=== PATIENT | female | born 1990 | race Caucasian/White ===

== ENCOUNTER 2017-03-10 16:05 | Emergency (ER) | payer MEDICAID ==
[~2017-03-10] VITALS: Ht 165.1 cm; Wt 100.0 kg
[2017-03-10] MEDS ORDERED: KETOROLAC 60MG/2ML VIAL IM ONE (19:00)
[2017-03-10 19:56] VITALS: BP 128/75
== END 2017-03-10 20:18 | disposition home or self-care (01) ==
LOC: ER 17:22
DX: S80.02XA Contusion of left knee, initial encounter (principal); M25.512 Pain in left shoulder; F12.10 Cannabis abuse, uncomplicated; V49.88XA Car occupant (driver) (passenger) injured in other specified transport accidents, initial encounter; Y93.89 Activity, other specified; Y92.89 Other specified places as the place of occurrence of the external cause; Y99.8 Other external cause status
CPT/HCPCS: 73562; 81025; 99284; J1885

== ENCOUNTER 2020-12-19 14:07 | Emergency (ER) | payer MEDICAID, OTHER ==
[~2020-12-19] VITALS: Ht 167.6 cm; Wt 108.0 kg
[2020-12-19 14:52] VITALS: BP 133/78
[2020-12-19] MEDS ORDERED: LIDOCAINE HCL/PF 1% 10 MG/ML 5ML VIAL IJ ONE (15:15)
[2020-12-19] MEDS ORDERED: BACITRACIN ZINC OINT UDPKT TOP ONE (15:15)
[2020-12-19] MEDS ORDERED: ACETAMINOPHEN 325MG TABLET PO ONE (15:15)
[2020-12-19] MEDS ORDERED: TETANUS, DIPHTHERIA, PERTUSSIS VAC/PF 0.5ML (>7YR OLD) IM ONE (15:15)
[2020-12-19] MEDS ORDERED: TRANEXAMIC ACID 1,000 MG/10 ML IV ONE (16:15)
[2020-12-19] MEDS ORDERED: BO1 TP (17:16)
== END 2020-12-19 17:44 | disposition home or self-care (01) ==
LOC: ER 14:07
DX: S61.012A Laceration without foreign body of left thumb without damage to nail, initial encounter (principal); W26.0XXA Contact with knife, initial encounter; Y93.89 Activity, other specified; Y92.89 Other specified places as the place of occurrence of the external cause; Y99.8 Other external cause status
CPT/HCPCS: 12001; 90471; 90715; 96374; 99283; J3490; Z7610

== ENCOUNTER 2020-12-23 13:58 | Emergency (ER) | payer OTHER ==
[~2020-12-23] VITALS: Ht 165.1 cm; Wt 101.0 kg
[~2020-12-23 13:58] MED LIST: BO1 TP
[2020-12-23 13:59] VITALS: BP 141/89
[2020-12-23] MEDS ORDERED: BACITRACIN ZINC OINT UDPKT TOP ONE (16:30)
== END 2020-12-23 17:39 | disposition home or self-care (01) ==
LOC: ER 13:58
DX: Z48.00 Encounter for change or removal of nonsurgical wound dressing (principal); F12.10 Cannabis abuse, uncomplicated
CPT/HCPCS: 99282

== ENCOUNTER 2021-08-15 12:39 | Emergency (ER) | payer OTHER ==
[~2021-08-15] VITALS: Ht 167.6 cm; Wt 120.0 kg
[2021-08-15 12:48] VITALS: BP 133/76
[2021-08-15] MEDS ORDERED: TOPUD PO (12:56)
[2021-08-15] MEDS ORDERED: IBUP-2028 MT (12:57)
[2021-08-15] MEDS ORDERED: ONDANSETRON 4MG ODT PO ONE (13:00)
== END 2021-08-15 13:21 | disposition home or self-care (01) ==
LOC: ER 12:50
DX: B34.9 Viral infection, unspecified (principal); R11.2 Nausea with vomiting, unspecified; F12.10 Cannabis abuse, uncomplicated; Z20.822 Contact with and (suspected) exposure to COVID-19
CPT/HCPCS: 99283; C9803; Q0162; U0003; U0005

== ENCOUNTER 2022-04-08 16:47 | Emergency (ER) | payer OTHER ==
[~2022-04-08] VITALS: Ht 165.1 cm; Wt 115.0 kg
[~2022-04-08 16:47] MED LIST changes: +IBUP-2028 MT; +TOPUD PO
[2022-04-08 17:08] VITALS: BP 130/81
[2022-04-08] MEDS ORDERED: ACETAMINOPHEN 325MG TABLET PO ONE (21:15)
[2022-04-08 22:09] LABS: CLARITY URINE CLEAR (CLEAR); COLOR URINE YELLOW (YELLOW); KETONES URINE NEGATIVE (NEGATIVE); LEUKOCYTE ESTERASE URINE NEGATIVE (NEGATIVE); NITRITE URINE NEGATIVE (NEGATIVE); OCCULT BLOOD URINE NEGATIVE (NEGATIVE); PH URINE 5.5 (4.5-8.0); PROTEIN URINE NEGATIVE (NEGATIVE); SPECIFIC GRAVITY URINE 1.013 (1.005-1.030); UROBILINOGEN URINE 0.2 E.U./dL (0.2-1.0)
[2022-04-08] MEDS ORDERED: IBUP-2029 MT (22:33)
== END 2022-04-08 23:11 | disposition home or self-care (01) ==
LOC: ER 16:47
DX: B34.9 Viral infection, unspecified (principal); R51.9 Headache, unspecified; Z20.822 Contact with and (suspected) exposure to COVID-19
CPT/HCPCS: 81003; 81025; 87426; 99283; C9803